=== PATIENT | female | born 1965 | race Caucasian/White ===

== ENCOUNTER 2021-12-06 09:23 | Day surgery (SDC) | payer OTHER, SELFPAY ==
[~2021-12-06] VITALS: Ht 152.4 cm; Wt 71.7 kg
[2021-12-06] MEDS ORDERED: MIDAZOLAM 5 MG/5 ML VIAL ONE (10:44)
[2021-12-06] MEDS ORDERED: LIDOCAINE 2% 100 MG/5 ML UJET TP ONE ×2 (10:45→10:46)
[2021-12-06] MEDS ORDERED: fentaNYL citrate 0.05 MG/ML VIAL ONE (10:45)
[2021-12-06] MEDS ORDERED: fentaNYL citrate 0.05 MG/ML VIAL IVP ONE (13:10)
[2021-12-06] MEDS ORDERED: MIDAZOLAM 2 MG/2 ML VIAL IVP ONE (13:10)
== END 2021-12-06 12:45 | disposition home or self-care (01) ==
LOC: MMU 09:23 → MDS 09:23
PROVIDERS: ATTEND Internal Medicine Gastroenterology
DX: R10.13 Epigastric pain (principal); K75.89 Other specified inflammatory liver diseases; E66.09 Other obesity due to excess calories; Z68.30 Body mass index [BMI] 30.0-30.9, adult; Z20.822 Contact with and (suspected) exposure to COVID-19
CPT/HCPCS: 43239; 87426; 88305; 88312; 88313; 88342; J2250; J3010